=== PATIENT | female | born 1990 | race Caucasian/White ===

== ENCOUNTER 2022-04-07 17:54 | Observation (INO) | payer MEDICARE, OTHER ==
--- NOTE | 2022-04-07 18:38 | ED ---
General Adult HPI - General Chief complaint: Recheck/Abnormal Lab/Rx Stated complaint: Detox Time Seen by Provider: 04/07/22 17:58 Source: patient, EMS, RN notes reviewed, old records reviewed Mode of arrival: EMS Limitations: no limitations - History of Present Illness Initial comments: 31-year-old female presenting from [facility]. Patient was sent from the rehabilitation Center for inpatient detox. She has history of opiate and alcohol abuse. She last drink was on Wednesday. She drinks at least one fifth of alcohol daily. She has history of seizure disorder and had seizure on Wednesday. She does have history of seizure disorder and is currently on Dilantin. Review of Systems ROS Statement: Those systems with pertinent positive or pertinent negative responses have been documented in the HPI. ROS Other: All systems not noted in ROS Statement are negative. Past Medical History Past Medical History: Seizure Disorder Additional Past Medical History / Comment(s): gastroperesis History of Any Multi-Drug Resistant Organisms: MRSA MDRO Source:: back Past Surgical History: Cholecystectomy, Tubal Ligation Past Psychological History: Anxiety, Depression Smoking Status: Current every day smoker Past Alcohol Use History: Abuse, Daily Past Drug Use History: Cocaine, Heroin, IV Drug Use General Exam Limitations: no limitations General appearance: alert, in no apparent distress Head exam: Present: atraumatic, normocephalic Eye exam: Present: normal appearance, PERRL ENT exam: Present: mucous membranes moist Neck exam: Present: normal inspection. Absent: tenderness, meningismus Respiratory exam: Present: normal lung sounds bilaterally. Absent: respiratory distress, wheezes Cardiovascular Exam: Present: regular rate, normal rhythm GI/Abdominal exam: Present: soft. Absent: distended, tenderness Extremities exam: Present: normal inspection, normal capillary refill Neurological exam: Present: alert, oriented X3, CN II-XII intact. Absent: motor sensory deficit Psychiatric exam: Present: depressed, flat affect Skin exam: Present: warm, dry, intact. Absent: cyanosis, diaphoretic Course Vital Signs 04/07/22 17:58 Temperature 98.3 F Pulse Rate 89 Respiratory 16 Rate Blood Pressure 126/77 O2 Sat by Pulse 100 Oximetry Medical Decision Making - Medical Decision Making 31-year-old female with opiate and alcohol abuse history last drink 2 days ago. She does not currently appear to be withdrawing but was sent in from the rehabilitation Center for admission for detox per kamronke melani on scheduled Valium. She will be monitored according to [facility] protocol. Her laboratory testing currently is unremarkable. Vitals are stable. She'll be admitted to Dr. Tran - Lab Data Result diagrams: 04/07/22 18:35 04/07/22 18:35 Lab Results 04/07/22 04/07/22 04/07/22 Range/Units 18:35 18:35 18:35 WBC 8.4 (3.8-10.6) k/uL RBC 4.36 (3.80-5.40) m/uL Hgb 14.0 (11.4-16.0) gm/dL Hct 41.6 (34.0-46.0) % MCV 95.4 (80.0-100.0) fL MCH 32.0 (25.0-35.0) pg MCHC 33.6 (31.0-37.0) g/dL RDW 14.1 (11.5-15.5) % Plt Count 426 (150-450) k/uL MPV 7.2 Neutrophils % 62 % Lymphocytes % 32 % Monocytes % 4 % Eosinophils % 1 % Basophils % 0 % Neutrophils # 5.2 (1.3-7.7) k/uL Lymphocytes # 2.7 (1.0-4.8) k/uL Monocytes # 0.3 (0-1.0) k/uL Eosinophils # 0.1 (0-0.7) k/uL Basophils # 0.0 (0-0.2) k/uL PT 9.7 (9.0-12.0) sec INR 0.9 (<1.2) APTT 22.1 (22.0-30.0) sec Sodium 139 (137-145) mmol/L Potassium 3.6 (3.5-5.1) mmol/L Chloride 102 (98-107) mmol/L Carbon Dioxide 30 (22-30) mmol/L Anion Gap 7 mmol/L BUN 11 (7-17) mg/dL Creatinine 0.84 (0.52-1.04) mg/dL Est GFR (CKD-EPI)AfAm >90 (>60 ml/min/1.73 sqM) Est GFR (CKD-EPI)NonAf >90 (>60 ml/min/1.73 sqM) Glucose 78 (74-99) mg/dL Calcium 9.0 (8.4-10.2) mg/dL Magnesium 1.8 (1.6-2.3) mg/dL Total Bilirubin <0.1 L (0.2-1.3) mg/dL AST 19 (14-36) U/L ALT 29 (4-34) U/L Alkaline Phosphatase 117 (38-126) U/L Total Protein 7.1 (6.3-8.2) g/dL Albumin 4.3 (3.5-5.0) g/dL Phenytoin <3.0 ug/mL Serum Alcohol <10 mg/dL Disposition Clinical Impression: Alcohol withdrawal Disposition: ADMITTED IP TO THIS HOSP Condition: Stable Is patient prescribed a controlled substance at d/c from ED?: No Referrals: None,Stated [Primary Care Provider] - 1-2 days Time of Disposition: 19:52
[2022-04-07 18:48] LABS: HCT 41.6 % (34.0-46.0); MCHC 33.6 g/dL (31.0-37.0); MCV 95.4 fL (80.0-100.0); RBC 4.36 m/uL (3.80-5.40); WBC 8.4 k/uL (3.8-10.6)
[2022-04-07 18:49] LABS: Basophils % (A) 0 %; Eosinophils # (A) 0.1 k/uL (0-0.7); Eosinophils % (A) 1 %; Lymphocytes # (A) 2.7 k/uL (1.0-4.8); Lymphocytes % (A) 32 %; Mean Platelet Volume 7.2; Monocytes # (A) 0.3 k/uL (0-1.0); Monocytes % (A) 4 %; Neutrophils # (A) 5.2 k/uL (1.3-7.7); Neutrophils % (A) 62 %; Platelet Count 426 k/uL (150-450); RDW 14.1 % (11.5-15.5)
[2022-04-07 19:02] LABS: ALT 29 U/L (4-34); AST 19 U/L (14-36); African American GFR (CKD) >90 (>60 ml/min/1.73 sqM); Albumin 4.3 g/dL (3.5-5.0); Alcohol <10 mg/dL; Alkaline Phosphatase 117 U/L (38-126); Anion Gap 7 mmol/L; Blood Urea Nitrogen 11 mg/dL (7-17); Carbon Dioxide 30 mmol/L (22-30); Chloride 102 mmol/L (98-107); Glucose 78 mg/dL (74-99); Magnesium 1.8 mg/dL (1.6-2.3); Non-African American GFR(CKD) >90 (>60 ml/min/1.73 sqM); Phenytoin (Dilantin) <3.0 ug/mL; Potassium 3.6 mmol/L (3.5-5.1); Sodium 139 mmol/L (137-145); Total Bilirubin <0.1 mg/dL (0.2-1.3); Total Protein 7.1 g/dL (6.3-8.2)
[2022-04-07 19:09] LABS: INR 0.9 (<1.2); Partial Thromboplastin Time 22.1 sec (22.0-30.0); Prothrombin Time 9.7 sec (9.0-12.0)
[2022-04-07] MEDS ORDERED: diazePAM 5 MG TAB PO STA (19:50)
[2022-04-07] MEDS ORDERED: NALOXONE 0.4 MG/ML 1 ML VIAL IV PRN (19:51)
[2022-04-07] MEDS ORDERED: LORazepam 2 MG/ML INJ IV PRN ×3 (21:24)
[2022-04-07] MEDS ORDERED: diazePAM 5 MG TAB PO SCH (22:00)
[2022-04-07] MEDS ORDERED: GABAPENTIN 300 MG CAP PO SCH (22:15)
[2022-04-07] MEDS ORDERED: QUEtiapine 100 MG TAB PO SCH (22:30)
[2022-04-07] MEDS: traZODone HCL 100 MG TAB PO SCH (22:43)
[2022-04-07] MEDS: QUEtiapine 200 MG TAB PO SCH (22:43)
[2022-04-07] MEDS ORDERED: LORazepam 1 MG/0.5 ML VIAL IV PRN ×3 (23:14→23:16)
[2022-04-07] MEDS: GABAPENTIN 400 MG CAP PO SCH (23:20)
--- NOTE | 2022-04-08 01:33 | P.HPIM ---
History of Present Illness H&P Date: 04/07/22 The patient is a 31-year-old female, currently homeless with a history of EtOH abuse, polysubstance abuse, seizure disorder, hypertension, and asthma who was sent from [place] where she had presented earlier today. The patient had reported to [place] that she had a seizure while trying to detox this past Wednesday, at which point they sent the patient to the emergency room for alcohol withdrawal. Patient reports a significant history of EtOH abuse, drinking $50 worth of varying kinds of hard liquor daily. Reports no prior history of EtOH withdrawal seizures or delirium tremens. Notes that her last drink was Wednesday evening, after she had the seizure while she was staying at a homeless long term. She also reports using heroin, cocaine, and fentanyl this past Wednesday night. She reports feeling somewhat shaky but denied any additional physical complaints at the time of interview. Denied experiencing chest discomfort, shortness of breath, fever, chills, cough, nausea, vomiting, abdominal pain, diarrhea. Laboratory evaluation in the emergency room was unremarkable Review of systems: Pertinent positives and negatives as discussed in HPI, a complete review of systems was performed and all other systems are negative. Physical examination: General: non toxic, no distress, appears at stated age, morbidly obese Derm: no unusual rashes/lesions, warm Head: atraumatic, normocephalic, symmetric Eyes: EOMI, no lid lag, anicteric sclera, pupils equal round reactive to light ENT: Nose and ears atraumatic Neck: No cervical lymphadenopathy, trachea midline, supple Mouth: no lip lesion, mucus membranes moist Cardiovascular: S1S2 reg, no murmur, positive dorsalis pedis pulse bilateral, no edema Lungs: CTA bilateral, no rhonchi, no rales, no accessory muscle use Abdominal: soft, nontender to palpation, no guarding Ext: muscle strength 5 out of 5 in all 4 extremities grossly, no gross muscle atrophy, no contractures, Neuro: CN II-XI grossly intact, no gross focal neuro deficits, mild outstretched hand tremor Psych: Alert, oriented, appropriate affect Assessment/plan Alcohol abuse, impending withdrawal -[facility] protocol -Thiamine, multivitamin -IV fluids -Advised on the importance of cessation Polysubstance abuse -Monitor for signs of withdrawal -Strongly advised on the importance of cessation DVT prophylaxis -Heparin subcu The patient is admitted with an anticipated less than 2 midnight stay for evaluation of EtOH abuse CODE STATUS: Full Code Discussed with: Patient Anticipated discharge date: in am Anticipated discharge place: [place] Past Medical History Past Medical History: Seizure Disorder Additional Past Medical History / Comment(s): gastroperesis History of Any Multi-Drug Resistant Organisms: MRSA MDRO Source:: back Past Surgical History: Cholecystectomy, Tubal Ligation Past Psychological History: Anxiety, Depression Smoking Status: Current every day smoker Past Alcohol Use History: Abuse, Daily Past Drug Use History: Cocaine, Heroin, IV Drug Use - Past Family History Father Family Medical History: Hyperlipidemia Medications and Allergies Home Medications Medication Instructions Recorded Confirmed Type Albuterol Nebulized [Ventolin 2.5 mg INHALATION RT-DAILY PRN 04/07/22 04/07/22 History Nebulized] Albuterol Sulfate [Ventolin HFA] 2 puff INHALATION RT-Q6H PRN 04/07/22 04/07/22 History Folic Acid 1 mg PO DAILY 04/07/22 04/07/22 History Gabapentin 300 mg PO TID 04/07/22 04/07/22 History Ondansetron [Zofran] 4 mg PO Q8HR PRN 04/07/22 04/07/22 History Pantoprazole [Protonix] 40 mg PO BID 04/07/22 04/07/22 History Phenytoin Sodium Extended 100 mg PO TID 04/07/22 04/07/22 History [Dilantin] Prazosin HCl 1 mg PO HS 04/07/22 04/07/22 History QUEtiapine FUMARATE 600 mg PO HS 04/07/22 04/07/22 History Spironolactone [Aldactone] 50 mg PO DAILY 04/07/22 04/07/22 History busPIRone HCL 15 mg PO BID 04/07/22 04/07/22 History hydrOXYzine HCL [Atarax] 50 mg PO Q6H PRN 04/07/22 04/07/22 History traZODone HCL 300 mg PO HS 04/07/22 04/07/22 History Allergies Allergy/AdvReac Type Severity Reaction Status Date / Time Penicillins AdvReac Rash/Hives Verified 04/07/22 20:39 sulfamethoxazole AdvReac Rash/Hives Verified 04/07/22 20:39 [From Bactrim] trimethoprim [From Bactrim] AdvReac Rash/Hives Verified 04/07/22 20:39 Physical Exam Vitals: Vital Signs Temp Pulse Resp BP Pulse Ox 04/07/22 20:05 91 16 124/59 96 04/07/22 17:58 98.3 F 89 16 126/77 100 Intake and Output 04/07/22 04/07/22 04/07/22 06:59 14:59 22:59 Other: Weight 131.088 kg Results CBC & Chem 7: 04/07/22 18:35 04/07/22 18:35 Labs: Abnormal Lab Results - Last 24 Hours (Table) 04/07/22 Range/Units 18:35 Total Bilirubin <0.1 L (0.2-1.3) mg/dL
[2022-04-08] MEDS: SODIUM CHLORIDE 0.9% 1,000 ML IV SCH ×2 (02:30→15:42)
[2022-04-08 05:50] LABS: African American GFR (CKD) >90 (>60 ml/min/1.73 sqM); Anion Gap 9 mmol/L; Blood Urea Nitrogen 14 mg/dL (7-17); Calcium 9.5 mg/dL (8.4-10.2); Carbon Dioxide 23 mmol/L (22-30); Chloride 112 mmol/L (98-107); Glucose 92 mg/dL (74-99); Non-African American GFR(CKD) >90 (>60 ml/min/1.73 sqM); Sodium 144 mmol/L (137-145)
[2022-04-08] MEDS: HEPARIN SODIUM,PORCINE/PF 5,000 UNIT/0.5 ML SYRINGE SQ SCH ×3 (10:14→19:57)
[2022-04-08] MEDS: GABAPENTIN 400 MG CAP PO SCH ×3 (10:14→19:56)
[2022-04-08] MEDS: THIAMINE 100 MG TAB PO SCH (10:14)
--- NOTE | 2022-04-08 13:09 | P.DS ---
Providers Date of admission: 04/07/22 19:51 Expected date of discharge: 04/08/22 Attending physician: Nel Tran MD Primary care physician: Stated None Hospital Course: Discharge Diagnosis: Hospital Course: The patient is a 31-year-old female, currently homeless with a history of EtOH abuse, polysubstance abuse, seizure disorder, hypertension, and asthma who was sent from [place] where she had presented earlier today. The patient had reported to [place] that she had a seizure while trying to detox this past Wednesday, at which point they sent the patient to the emergency room for alcohol withdrawal. Patient reports a significant history of EtOH abuse, drinking $50 worth of varying kinds of hard liquor daily. Reports no prior history of EtOH withdrawal seizures or delirium tremens. Notes that her last drink was Wednesday evening, after she had the seizure while she was staying at a homeless residential. She also reports using heroin, cocaine, and fentanyl this past Wednesday night. She reports feeling somewhat shaky but denied any additional physical complaints at the time of interview. Denied experiencing chest discomfort, shortness of breath, fever, chills, cough, nausea, vomiting, abdominal pain, diarrhea. Laboratory evaluation in the emergency room was unremarkable Review of systems: Pertinent positives and negatives as discussed in HPI, a complete review of systems was performed and all other systems are negative. Physical examination: General: non toxic, no distress, appears at stated age, morbidly obese Derm: no unusual rashes/lesions, warm Head: atraumatic, normocephalic, symmetric Eyes: EOMI, no lid lag, anicteric sclera, pupils equal round reactive to light ENT: Nose and ears atraumatic Neck: No cervical lymphadenopathy, trachea midline, supple Mouth: no lip lesion, mucus membranes moist Cardiovascular: S1S2 reg, no murmur, positive dorsalis pedis pulse bilateral, no edema Lungs: CTA bilateral, no rhonchi, no rales, no accessory muscle use Abdominal: soft, nontender to palpation, no guarding Ext: muscle strength 5 out of 5 in all 4 extremities grossly, no gross muscle atrophy, no contractures, Neuro: CN II-XI grossly intact, no gross focal neuro deficits, mild outstretched hand tremor Psych: Alert, oriented, appropriate affect Assessment/plan Alcohol abuse, impending withdrawal -[facility] protocol -Thiamine, multivitamin -IV fluids -Advised on the importance of cessation Polysubstance abuse -Monitor for signs of withdrawal -Strongly advised on the importance of cessation DVT prophylaxis -Heparin subcu A total of [ ] minutes of time were spent preparing this complex discharge summary. Pt was discharged on [ ] at [ ] Patient Condition at Discharge: Stable Plan - Discharge Summary Discharge Rx Participant: No New Discharge Prescriptions: No Action Ondansetron [Zofran] 4 mg PO Q8HR PRN PRN Reason: Nausea hydrOXYzine HCL [Atarax] 50 mg PO Q6H PRN PRN Reason: ANXIETY/ITCHING Gabapentin 300 mg PO TID traZODone HCL 300 mg PO HS QUEtiapine FUMARATE 600 mg PO HS busPIRone HCL 15 mg PO BID Albuterol Sulfate [Ventolin HFA] 2 puff INHALATION RT-Q6H PRN PRN Reason: Shortness Of Breath Albuterol Nebulized [Ventolin Nebulized] 2.5 mg INHALATION RT-DAILY PRN PRN Reason: Shortness Of Breath Prazosin HCl 1 mg PO HS Phenytoin Sodium Extended [Dilantin] 100 mg PO TID Pantoprazole [Protonix] 40 mg PO BID Folic Acid 1 mg PO DAILY Spironolactone [Aldactone] 50 mg PO DAILY Discharge Medication List Albuterol Nebulized [Ventolin Nebulized] 2.5 mg INHALATION RT-DAILY PRN 04/07/22 [History] Albuterol Sulfate [Ventolin HFA] 2 puff INHALATION RT-Q6H PRN 04/07/22 [History] Folic Acid 1 mg PO DAILY 04/07/22 [History] Gabapentin 300 mg PO TID 04/07/22 [History] Ondansetron [Zofran] 4 mg PO Q8HR PRN 04/07/22 [History] Pantoprazole [Protonix] 40 mg PO BID 04/07/22 [History] Phenytoin Sodium Extended [Dilantin] 100 mg PO TID 04/07/22 [History] Prazosin HCl 1 mg PO HS 04/07/22 [History] QUEtiapine FUMARATE 600 mg PO HS 04/07/22 [History] Spironolactone [Aldactone] 50 mg PO DAILY 04/07/22 [History] busPIRone HCL 15 mg PO BID 04/07/22 [History] hydrOXYzine HCL [Atarax] 50 mg PO Q6H PRN 04/07/22 [History] traZODone HCL 300 mg PO HS 04/07/22 [History] Follow up Appointment(s)/Referral(s): [facility] [Outside] - As Needed None,Stated [Primary Care Provider] - 1-2 days
[2022-04-08] MEDS ORDERED: PHENYTOIN SODIUM INJ 1,000 MG in SODIUM CHLORIDE 0.9% 100 ML IVPB STA (14:43)
[2022-04-08] MEDS ORDERED: NICOTINE GUM (POLACRILEX) 2 MG GUM BUCCAL PRN (14:56)
[2022-04-08] MEDS ORDERED: hydrOXYzine HCL 25 MG TAB PO PRN (14:56)
[2022-04-08] MEDS ORDERED: ALBUTEROL NEBULIZED 2.5 MG/3 ML INHALATION PRN (14:56)
[2022-04-08] MEDS ORDERED: PHENYTOIN SODIUM INJ 500 MG in SODIUM CHLORIDE 0.9% 100 ML IVPB ONE (16:00)
[2022-04-08] MEDS ORDERED: PHENYTOIN SODIUM EXTENDED 100 MG CAP PO SCH (16:00)
--- NOTE | 2022-04-08 17:38 | P.PN ---
Subjective Progress Note Date: 04/08/22 Hospital course: The patient is a 31-year-old female, currently homeless with a history of EtOH abuse, polysubstance abuse, seizure disorder, hypertension, and asthma who was sent from [place] where she had presented earlier today. The patient had reported to [place] that she had a seizure while trying to detox this past Wednesday, at which point they sent the patient to the emergency room for alcohol withdrawal. Patient reports a significant history of EtOH abuse, drinking $50 worth of varying kinds of hard liquor daily. Reports no prior history of EtOH withdrawal seizures or delirium tremens. Notes that her last drink was Wednesday evening, after she had the seizure while she was staying at a homeless [facility]. She also reports using heroin, cocaine, and fentanyl this past Wednesday night. She reports feeling somewhat shaky but denied any additional physical complaints at the time of interview. Denied experiencing chest discomfort, shortness of breath, fever, chills, cough, nausea, vomiting, abdominal pain, diarrhea. Laboratory evaluation in the emergency room was unremarkable Physical examination: Patient seen and fully evaluated at bedside this morning. She is showing no active signs of withdrawal, current CIWA score is 0. Patient reports last alcoh olic beverage was sometimes Wednesday evening and also reports last time consuming heroin, cocaine, and fentanyl was also Wednesday evening. Dilantin dose is subtherapeutic at less than 3. Patient given loading dose of Dilantin 1500 mg IVPB and to resume daily dose of Dilantin 100 mg 3 times a day. We will continue to monitor with repeat levels with a.m. labs. Seizure precautions to remain in place. General: non toxic, no distress, appears at stated age, morbidly obese Derm: no unusual rashes/lesions, warm Head: atraumatic, normocephalic, symmetric Eyes: EOMI, no lid lag, anicteric sclera, pupils equal round reactive to light ENT: Nose and ears atraumatic Neck: No cervical lymphadenopathy, trachea midline, supple Mouth: no lip lesion, mucus membranes moist Cardiovascular: S1S2 reg, no murmur, positive dorsalis pedis pulse bilateral, no edema Lungs: CTA bilateral, no rhonchi, no rales, no accessory muscle use Abdominal: soft, nontender to palpation, no guarding Ext: muscle strength 5 out of 5 in all 4 extremities grossly, no gross muscle atrophy, no contractures, Neuro: CN II-XI grossly intact, no gross focal neuro deficits, mild outstretched hand tremor Psych: Alert, oriented, appropriate affect Assessment and plan of care: Alcohol withdrawal and active alcoholic -[facility] Protocol with symptom triggered medication management with benzodiazepines, -Thiamine 100 mg twice a day -Multivitamin daily -Folate 1 mg daily -Seizure, fall, aspiration, and elopement precautions in place. -Continued close monitoring of electrolytes and replace as needed. Polysubstance abuse -Monitor for signs of withdrawal -Strongly advised on the importance of cessation Subtherapeutic Dilantin level -Patient given loading dose of 1500 mg and to resume daily Dilantin dose of 100 mg 3 times daily. We will repeat levels with a.m. labs. -Seizure precautions CODE STATUS: Full Code DVT prophylaxis: Heparin Discussed with: Patient Anticipated discharge date: in am Anticipated discharge place: [place] A total of 35 minutes was spent on the care of this complex patient more than 50% of the time was spent in counseling and care coordination. Luis Manuel Corona NP rendered care for this patient independently, reviewed the findings and plan as documented in the note above. I did not physically speak with or examine the patient on this date. Objective - Vital Signs Vital signs: Vital Signs Temp 97.7 F 04/08/22 07:18 Pulse 61 04/08/22 07:18 Resp 16 04/08/22 07:18 BP 93/62 04/08/22 07:18 Pulse Ox 98 04/08/22 07:18 FiO2 Intake & Output 04/07/22 04/08/22 04/08/22 18:59 06:59 18:59 Intake Total 750 Balance 750 Weight 131.088 kg 131.088 kg Intake: Oral 750 Other: Voiding Method Toilet - Labs CBC & Chem 7: 04/07/22 18:35 04/08/22 04:40 Labs: Abnormal Lab Results - Last 24 Hours (Table) 04/07/22 04/08/22 Range/Units 18:35 04:40 Chloride 112 H (98-107) mmol/L Total Bilirubin <0.1 L (0.2-1.3) mg/dL
[2022-04-08] MEDS: traZODone HCL 100 MG TAB PO SCH (19:56)
[2022-04-08] MEDS: PHENYTOIN SODIUM EXTENDED 100 MG CAP PO SCH (19:56)
[2022-04-08] MEDS: QUEtiapine 200 MG TAB PO SCH (19:56)
[2022-04-08] MEDS: busPIRone HCl 5 MG TAB PO SCH (19:56)
[2022-04-08] MEDS ORDERED: PRAZOSIN 1 MG CAP PO SCH (21:00)
[2022-04-08] MEDS ORDERED: QUETIAPINE FUMARATE 300 MG PO SCH (21:00)
[2022-04-09] MEDS: SODIUM CHLORIDE 0.9% 1,000 ML IV SCH (00:55)
[2022-04-09] MEDS: PHENYTOIN SODIUM EXTENDED 100 MG CAP PO SCH (08:56)
[2022-04-09] MEDS: THIAMINE 100 MG TAB PO SCH (08:56)
[2022-04-09] MEDS: busPIRone HCl 5 MG TAB PO SCH (08:56)
[2022-04-09] MEDS: GABAPENTIN 400 MG CAP PO SCH (08:56)
[2022-04-09] MEDS: HEPARIN SODIUM,PORCINE/PF 5,000 UNIT/0.5 ML SYRINGE SQ SCH (08:57)
[2022-04-09] MEDS ORDERED: PHENYTOIN SODIUM INJ 500 MG in SODIUM CHLORIDE 0.9% 50 ML IVPB STA (10:06)
[2022-04-09 13:30] VITALS: BP 112/67; PULSE 61; RESP 16; TEMP 98.3
--- NOTE | 2022-04-09 16:07 | P.DS ---
Providers Date of admission: 04/07/22 19:51 Expected date of discharge: 04/09/22 Attending physician: Nel Tran MD Primary care physician: Stated None Hospital Course: Discharge Diagnosis: Alcohol withdrawal and active alcoholic, patient strongly advised to stop drinking alcohol. Polysubstance abuse with cocaine, heroin, and fentanyl. Strongly advised on the importance of cessation Subtherapeutic Dilantin level. initially less than 3. Patient given loading dose and started back on home medications in which she was not previously taking, bringing her Dilantin level up to 8 and an additional 500 mg loading dose was given to ensure therapeutic level upon discharge, no need to repeat Dilantin level at this time. Patient may follow-up with PCP for continued long- term monitoring and management. Hospital Course: The patient is a 31-year-old female, currently homeless with a history of EtOH abuse, polysubstance abuse, seizure disorder, hypertension, and asthma who was sent from [place] where she had presented earlier today. The patient had reported to [place] that she had a seizure while trying to detox this past Wednesday, at which point they sent the patient to the emergency room for alcohol withdrawal. Patient reports a significant history of EtOH abuse, drinking $50 worth of varying kinds of hard liquor daily. Reports no prior history of EtOH withdrawal seizures or delirium tremens. Notes that her last drink was Wednesday evening, after she had the seizure while she was staying at a homeless [facility]. She also reports using heroin, cocaine, and fentanyl this past Wednesday night. She reports feeling somewhat sy but denied any additional physical complaints upon admission. patient was admitted under our services and underwent a 2 night hospitalization for monitoring of her alcohol withdrawal. Patient was found to have a subtherapeutic Dilantin level and received a loading dose a loading dose followed by resumption of regular daily medications. Throughout hospitalization patient displayed no active signs of withdrawal and CIWA remained at a 0. Patient is medically stable and plans to return to [place]. Patient strongly encouraged on cessation of all substance abuse including alcohol, cocaine, heroin, and fentanyl. Patient reports that she needs a new prescription for her Dilantin and prescription was provided at discharge. Physical examination: General: non toxic, no distress, appears at stated age, morbidly obese Derm: no unusual rashes/lesions, warm Head: atraumatic, normocephalic, symmetric Eyes: EOMI, no lid lag, anicteric sclera, pupils equal round reactive to light ENT: Nose and ears atraumatic Neck: No cervical lymphadenopathy, trachea midline, supple Mouth: no lip lesion, mucus membranes moist Cardiovascular: S1S2 reg, no murmur, positive dorsalis pedis pulse bilateral, no edema Lungs: CTA bilateral, no rhonchi, no rales, no accessory muscle u Abdominal: soft, nontender to palpation, no guarding Ext: muscle strength 5 out of 5 in all 4 extremities grossly, no gross muscle atrophy, no contractures, Neuro: CN II-XI grossly intact, no gross focal neuro deficits, mild outstretched hand tremor Psych: Alert, oriented, appropriate affect A total of 35 minutes of time were spent preparing this complex discharge summary. Pt was discharged on 04/09/22 at 3:57 PM. Luis Manuel Corona NP rendered care for this patient independently, reviewed the findings and plan as documented in the note above. I did not physically speak with or examine the patient on this date. Patient Condition at Discharge: Stable Plan - Discharge Summary Discharge Rx Participant: No New Discharge Prescriptions: Continue Ondansetron [Zofran] 4 mg PO Q8HR PRN PRN Reason: Nausea hydrOXYzine HCL [Atarax] 50 mg PO Q6H PRN PRN Reason: ANXIETY/ITCHING Gabapentin 300 mg PO TID traZODone HCL 300 mg PO HS QUEtiapine FUMARATE 600 mg PO HS busPIRone HCL 15 mg PO BID Albuterol Sulfate [Ventolin HFA] 2 puff INHALATION RT-Q6H PRN PRN Reason: Shortness Of Breath Albuterol Nebulized [Ventolin Nebulized] 2.5 mg INHALATION RT-DAILY PRN PRN Reason: Shortness Of Breath Prazosin HCl 1 mg PO HS Pantoprazole [Protonix] 40 mg PO BID Folic Acid 1 mg PO DAILY Spironolactone [Aldactone] 50 mg PO DAILY Phenytoin Sodium Extended [Dilantin] 100 mg PO TID 30 Days #90 cap Discharge Medication List Albuterol Nebulized [Ventolin Nebulized] 2.5 mg INHALATION RT-DAILY PRN 04/07/22 [History] Albuterol Sulfate [Ventolin HFA] 2 puff INHALATION RT-Q6H PRN 04/07/22 [History] Folic Acid 1 mg PO DAILY 04/07/22 [History] Gabapentin 300 mg PO TID 04/07/22 [History] Ondansetron [Zofran] 4 mg PO Q8HR PRN 04/07/22 [History] Pantoprazole [Protonix] 40 mg PO BID 04/07/22 [History] Prazosin HCl 1 mg PO HS 04/07/22 [History] QUEtiapine FUMARATE 600 mg PO HS 04/07/22 [History] Spironolactone [Aldactone] 50 mg PO DAILY 04/07/22 [History] busPIRone HCL 15 mg PO BID 04/07/22 [History] hydrOXYzine HCL [Atarax] 50 mg PO Q6H PRN 04/07/22 [History] traZODone HCL 300 mg PO HS 04/07/22 [History] Phenytoin Sodium Extended [Dilantin] 100 mg PO TID 30 Days #90 cap 04/09/22 [Rx] Follow up Appointment(s)/Referral(s): [facility] [Outside] - As Needed Javier Borja MD [REFERRING] - 1 Week Patient Instructions/Handouts: Alcohol Dependence (DC) Activity/Diet/Wound Care/Special Instructions: Activity: As tolerated. Take breaks as needed. Diet: Heart healthy and carb consistent diet. Avoid salts, or foods with hidden salts such as canned or boxed foods and frozen dinners. Extra salt makes your heart work harder and traps the fluid in your body for longer. Special Instructions: Take all of your medications as directed and remember to keep all of your doctor's appointments and follow-up as needed. Strongly recommend cessation of all alcohol, heroin, cocaine, and fentanyl use and returning to [facility] for inpatient rehabilitation. Thank you for allowing us to participate in your care, it was truly a pleasure having you for our patient!!! Discharge Disposition: HOME SELF-CARE
== END 2022-04-09 16:08 | disposition home or self-care (01) ==
LOC: EC 17:54 → 6NMEDSUR 19:51
PROVIDERS: ADMIT Internal Medicine; ATTEND Internal Medicine
DX: F10.239 Alcohol dependence with withdrawal, unspecified (principal); F14.10 Cocaine abuse, uncomplicated; F11.10 Opioid abuse, uncomplicated; F19.10 Other psychoactive substance abuse, uncomplicated; I10 Essential (primary) hypertension; J45.909 Unspecified asthma, uncomplicated; G40.909 Epilepsy, unspecified, not intractable, without status epilepticus; K31.84 Gastroparesis; F32.A Depression, unspecified; F41.9 Anxiety disorder, unspecified; E66.01 Morbid (severe) obesity due to excess calories; Z68.42 Body mass index [BMI] 45.0-49.9, adult; F17.200 Nicotine dependence, unspecified, uncomplicated; Z86.14 Personal history of Methicillin resistant Staphylococcus aureus infection; Z71.41 Alcohol abuse counseling and surveillance of alcoholic; Z71.51 Drug abuse counseling and surveillance of drug abuser; Z71.9 Counseling, unspecified; Z88.0 Allergy status to penicillin; Z88.2 Allergy status to sulfonamides; Z59.01 Sheltered homelessness; Z79.899 Other long term (current) drug therapy; Z90.49 Acquired absence of other specified parts of digestive tract; Z83.438 Family history of other disorder of lipoprotein metabolism and other lipidemia
CPT/HCPCS: 96361 ×2; 96365; 96366 ×2; 96372 ×2; 99285; 36415; 80053; 80048; 80185 ×2; 83735 ×2; 85025; 85610; 85730; G0378 ×3; G0480; J1165 ×2; J1644 ×2; 80320